=== PATIENT | male | born 1980 | race Caucasian/White ===

== ENCOUNTER 2017-08-23 04:52 | Emergency (ER) | payer MEDICAID ==
[~2017-08-23] VITALS: Ht 172.7 cm; Wt 83.6 kg
[2017-08-23] MEDS ORDERED: ONDANSETRON ODT 4 MG PO ONE (05:30)
[2017-08-23] MEDS ORDERED: ONDANSETRON ODT 4 MG ONE (05:30)
[2017-08-23 05:50] LABS: BASOPHILS # (AUTO) 0.05 x10^3/uL (0-0.1); BASOPHILS % (AUTO) 1 % (0-1); EOSINOPHILS # (AUTO) 0.01 x10^3/uL (0-0.4); EOSINOPHILS % (AUTO) 0 % (1-7); LYMPHOCYTES # (AUTO) 1.25 x10^3/uL (1-3.4); LYMPHOCYTES % (AUTO) 27 % (22-44); MD NO; MEAN CORPUSCULAR HGB CONC 34.4 g/dL (33.2-36.2); MEAN PLATELET VOLUME 6.5 fL (7.4-10.4); MONOCYTES # (AUTO) 0.64 x10^3/uL (0.2-0.8); MONOCYTES % (AUTO) 14 % (2-9); NEUTROPHILS % (AUTO) 58 % (42-75); PLATELET COUNT 335 x10^3/uL (130-400); RED BLOOD COUNT 4.52 x10^6/uL (4.38-5.82); RED CELL DISTRIBUTION WIDTH 16.7 % (9.4-14.8)
[2017-08-23] MEDS ORDERED: THIAMINE 100MG TABLET PO ONE (06:00)
[2017-08-23] MEDS ORDERED: FAMOTIDINE 20 MG/2 ML IVPush ONE (06:00)
[2017-08-23] MEDS ORDERED: LORazepam 2 MG/ML, 1ML IVPush ONE (06:00)
[2017-08-23] MEDS ORDERED: SODIUM CHLORIDE 0.9% 1,000ML IVBOLUS ONE (06:00)
[2017-08-23] MEDS ORDERED: METOCLOPRAMIDE 5 MG/ML, 2ML IVPush ONE (06:00)
[2017-08-23 06:03] LABS: ALANINE AMINOTRANSFERASE 134 U/L (12-78); ALBUMIN 3.7 g/dL (3.4-5.0); ANION GAP 20 mmol/L (5-15); CALCIUM 8.1 mg/dL (8.5-10.1); CHLORIDE 102 mmol/L (98-107); CREATININE 0.68 mg/dL (0.7-1.3)
[2017-08-23 06:05] LABS: ALKALINE PHOSPHATASE 215 U/L (45-117); TOTAL PROTEIN 8.2 g/dL (6.4-8.2)
[2017-08-23] MEDS ORDERED: THIAMINE 100MG TABLET ONE (06:07)
[2017-08-23] MEDS ORDERED: METOCLOPRAMIDE 5 MG/ML, 2ML ONE (06:08)
[2017-08-23] MEDS ORDERED: LORazepam 2 MG/ML, 1ML ONE (06:08)
[2017-08-23] MEDS ORDERED: POTASSIUM CHLORIDE 20 MEQ TAB.ER.PRT PO ONE (06:30)
[2017-08-23 07:26] VITALS: BP 127/81
== END 2017-08-23 08:22 ==
LOC: ED 07:30
DX: K80.20 Calculus of gallbladder without cholecystitis without obstruction (principal); K70.10 Alcoholic hepatitis without ascites; F41.9 Anxiety disorder, unspecified; I10 Essential (primary) hypertension
CPT/HCPCS: 36415; 76700; 80053; 83690; 85025; 93005; 96361; 96374; 96375; 99285; J2060; J2765; J7030; Q0162; S0028

== ENCOUNTER 2017-09-01 02:29 | Emergency (ER) | payer MEDICAID ==
[~2017-09-01] VITALS: Ht 172.7 cm; Wt 84.4 kg
[2017-09-01] MEDS ORDERED: MAGNESIUM SULFATE 1 GM, THIAMINE 100 MG, FOLIC ACID 1 MG, MVI ADULT 10 ML in SODIUM CHL... IV ONE (03:00)
[2017-09-01] MEDS ORDERED: LORazepam 2 MG/ML, 1ML IVPush ONE (03:00)
[2017-09-01] MEDS ORDERED: SODIUM CHLORIDE FLUSH 10ML SYR IVF ONE (03:00)
[2017-09-01 03:11] LABS: BASOPHILS # (AUTO) 0.07 x10^3/uL (0-0.1); BASOPHILS % (AUTO) 1 % (0-1); EOSINOPHILS # (AUTO) 0.01 x10^3/uL (0-0.4); EOSINOPHILS % (AUTO) 0 % (1-7); LYMPHOCYTES # (AUTO) 0.96 x10^3/uL (1-3.4); LYMPHOCYTES % (AUTO) 20 % (22-44); MD NO; MEAN PLATELET VOLUME 7.4 fL (7.4-10.4); MONOCYTES # (AUTO) 0.69 x10^3/uL (0.2-0.8); MONOCYTES % (AUTO) 14 % (2-9); NEUTROPHILS # (AUTO) 3.19 x10^3/uL (1.8-6.8); NEUTROPHILS % (AUTO) 65 % (42-75); PLATELET COUNT 200 x10^3/uL (130-400); RED BLOOD COUNT 4.17 x10^6/uL (4.38-5.82); RED CELL DISTRIBUTION WIDTH 16.2 % (9.4-14.8)
[2017-09-01 03:22] LABS: ALBUMIN 3.8 g/dL (3.4-5.0); ANION GAP 24 mmol/L (5-15); CALCIUM 7.8 mg/dL (8.5-10.1); CHLORIDE 95 mmol/L (98-107); CREATININE 0.71 mg/dL (0.7-1.3)
[2017-09-01] MEDS ORDERED: POTASSIUM CHLORIDE 20 MEQ TAB.ER.PRT PO ONE (04:00)
[2017-09-01] MEDS ORDERED: POTASSIUM CHLORIDE 20 MEQ TAB.ER.PRT ONE (04:49)
[2017-09-01] MEDS ORDERED: LORazepam 2 MG/ML, 1ML ONE ×2 (04:50→05:32)
[2017-09-01 05:56] VITALS: BP 122/86
[2017-09-04] MEDS ORDERED: THIA100T10 PO (12:23)
[2017-09-04] MEDS ORDERED: FOLI-17 PO (12:23)
== END 2017-09-01 05:57 | disposition home or self-care (01) ==
LOC: ED 03:12
DX: F10.220 Alcohol dependence with intoxication, uncomplicated (principal); E87.6 Hypokalemia; I10 Essential (primary) hypertension; F41.0 Panic disorder [episodic paroxysmal anxiety]; K75.9 Inflammatory liver disease, unspecified; Z79.899 Other long term (current) drug therapy
CPT/HCPCS: 36415; 80048; 80307; 82040; 85025; 93005; 96365; 96366; 96375; 99285; J2060; J3411; J3475; J7030

== ENCOUNTER 2018-02-03 08:33 | Emergency (ER) | payer MEDICAID ==
[~2018-02-03] VITALS: Ht 172.7 cm; Wt 87.5 kg
[~2018-02-03 08:33] MED LIST: FOLI-17 PO; THIA100T10 PO
[2018-02-03] MEDS ORDERED: LORazepam 2 MG/ML, 1ML ONE (09:27)
[2018-02-03] MEDS ORDERED: THIAMINE 100MG TABLET ONE (09:27)
[2018-02-03] MEDS ORDERED: ONDANSETRON ODT 4 MG ONE (09:27)
[2018-02-03] MEDS ORDERED: ONDANSETRON ODT 4 MG PO ONE (09:30)
[2018-02-03] MEDS ORDERED: CHLORDIAZEPOXIDE 25 MG CAPSULE PO ONE (09:30)
[2018-02-03] MEDS ORDERED: SODIUM CHLORIDE 0.9% 1,000ML IVBOLUS ONE (09:30)
[2018-02-03] MEDS ORDERED: SODIUM CHLORIDE FLUSH 10ML SYR IVF ONE (09:30)
[2018-02-03] MEDS ORDERED: LORazepam 2 MG/ML, 1ML IVPush ONE ×2 (09:30→13:00)
[2018-02-03] MEDS ORDERED: FOLIC ACID 1 MG in DEXTROSE 5% 50 ML IV ONE (09:30)
[2018-02-03] MEDS ORDERED: THIAMINE 100MG TABLET PO ONE (09:30)
[2018-02-03 09:57] LABS: BASOPHILS # (AUTO) 0.02 x10^3/uL (0-0.1); BASOPHILS % (AUTO) 0 % (0-1); EOSINOPHILS # (AUTO) 0.01 x10^3/uL (0-0.4); EOSINOPHILS % (AUTO) 0 % (1-7); LYMPHOCYTES # (AUTO) 1.09 x10^3/uL (1-3.4); LYMPHOCYTES % (AUTO) 14 % (22-44); MD NO; MEAN CORPUSCULAR HEMOGLOBIN 33.5 pg (27.5-34.5); MEAN CORPUSCULAR HGB CONC 35.1 g/dL (33.2-36.2); MEAN CORPUSCULAR VOLUME 95.3 fL (81-97); MEAN PLATELET VOLUME 7.7 fL (7.4-10.4); MONOCYTES # (AUTO) 0.55 x10^3/uL (0.2-0.8); MONOCYTES % (AUTO) 7 % (2-9); NEUTROPHILS # (AUTO) 5.94 x10^3/uL (1.8-6.8); NEUTROPHILS % (AUTO) 78 % (42-75); PLATELET COUNT 386 x10^3/uL (130-400); RED BLOOD COUNT 4.49 x10^6/uL (4.38-5.82); RED CELL DISTRIBUTION WIDTH 15.6 % (9.4-14.8)
[2018-02-03] MEDS ORDERED: CHLORDIAZEPOXIDE 25 MG CAPSULE ONE (09:58)
[2018-02-03 10:05] LABS: ALANINE AMINOTRANSFERASE 95 U/L (12-78); ALBUMIN 3.9 g/dL (3.4-5.0); ANION GAP 20 mmol/L (5-15); CALCIUM 8.9 mg/dL (8.5-10.1); CHLORIDE 104 mmol/L (98-107); CREATININE 1.03 mg/dL (0.7-1.3)
[2018-02-03 10:07] LABS: ALKALINE PHOSPHATASE 173 U/L (45-117); BILIRUBIN,TOTAL 0.6 mg/dL (0.2-1.0); TOTAL PROTEIN 8.3 g/dL (6.4-8.2)
[2018-02-03 14:18] VITALS: BP 145/119
== END 2018-02-03 14:21 | disposition home or self-care (01) ==
LOC: ED 13:30
DX: F10.239 Alcohol dependence with withdrawal, unspecified (principal); I10 Essential (primary) hypertension
CPT/HCPCS: 36415; 80053; 80307; 85025; 96365; 96366; 96375; 96376; 99285; J2060; J7030; Q0162

== ENCOUNTER 2018-07-11 21:04 | Inpatient (IN) | payer MEDICAID ==
[~2018-07-11] VITALS: Ht 172.7 cm; Wt 89.8 kg
[~2018-07-11 21:04] MED LIST changes: +LOSA25TA25 PO; +MAGN64TA7 PO; +METO25TA35 PO; +MULT-484 PO; +THIA100T67 PO; +VANC1VIA3 PO
[2018-07-11] MEDS ORDERED: MAGNESIUM SULFATE 1 GM, THIAMINE 100 MG, FOLIC ACID 1 MG, MVI ADULT 10 ML in SODIUM CHL... IV ONE (21:30)
[2018-07-11] MEDS ORDERED: SODIUM CHLORIDE FLUSH 10ML SYR IVF ONE (21:30)
[2018-07-11] MEDS ORDERED: SODIUM CHLORIDE 0.9% 1,000ML IVBOLUS ONE (21:30)
--- NOTE | 2018-07-11 21:31 | NUR ---
PT BIB [facility] C/O NAUSEA AND TACHYCARDIA R/T EOTH WITHDRAWAL. STATES HX OF WITHDRAWAL IN THE PAST. PRESENTS TO ED W/ MILD TREMORS AND MODERATE INCREASED ANXIETY. NO OTHER WITHDRAWAL SYMPTOMS NOTED AT THIS TIME. DENIES FURTHE C/O AT THIS TIME. ALL MONITORING APPLIED. IV ESTABLISHED. IV FLUIDS ADMIN PER JUL. THIS RN TO MEDICATED PER JUL. CALL TYLER MASTERSON.
[2018-07-11] MEDS ORDERED: LORazepam 2 MG/ML, 1ML ONE ×2 (21:35→22:51)
[2018-07-11] MEDS: LORazepam 2 MG/ML, 1ML IVPush PRN ×4 (21:37→23:13)
[2018-07-11 21:46] LABS: BASOPHILS # (AUTO) 0.03 x10^3/uL (0-0.1); BASOPHILS % (AUTO) 0 % (0-1); EOSINOPHILS # (AUTO) 0.01 x10^3/uL (0-0.4); EOSINOPHILS % (AUTO) 0 % (1-7); LYMPHOCYTES # (AUTO) 1.11 x10^3/uL (1-3.4); LYMPHOCYTES % (AUTO) 14 % (22-44); MD NO; MEAN CORPUSCULAR HGB CONC 34.9 g/dL (33.2-36.2); MEAN CORPUSCULAR VOLUME 94.4 fL (81-97); MEAN PLATELET VOLUME 8.4 fL (7.4-10.4); MONOCYTES # (AUTO) 0.54 x10^3/uL (0.2-0.8); MONOCYTES % (AUTO) 7 % (2-9); NEUTROPHILS # (AUTO) 6.51 x10^3/uL (1.8-6.8); NEUTROPHILS % (AUTO) 79 % (42-75); PLATELET COUNT 206 x10^3/uL (130-400); RED BLOOD COUNT 4.28 x10^6/uL (4.38-5.82); RED CELL DISTRIBUTION WIDTH 14.4 % (9.4-14.8)
[2018-07-11 22:19] LABS: ALANINE AMINOTRANSFERASE 85 U/L (12-78); ALBUMIN 3.9 g/dL (3.4-5.0); ANION GAP 21 mmol/L (5-15); CHLORIDE 104 mmol/L (98-107)
[2018-07-11 22:22] LABS: ALKALINE PHOSPHATASE 136 U/L (45-117); BILIRUBIN,TOTAL 0.9 mg/dL (0.2-1.0); TOTAL PROTEIN 7.7 g/dL (6.4-8.2)
[2018-07-11] MEDS: DIAZEPAM 5 MG/ML, 2ML IVPush PRN ×2 (22:27→23:55)
--- NOTE | 2018-07-11 22:27 | NUR ---
PT HR STILL 120-140'S. GIVEN 2ND DOSE OF ATIVAN AND FIRST DOSE OF VALIUM. OTHER IV DRIP INITIATED PER JUL.
[2018-07-11] MEDS ORDERED: LABETALOL 5 MG/ML SYRINGE IV PRN (23:00)
[2018-07-11] MEDS ORDERED: ACETAMINOPHEN 325 MG TABLET PO PRN (23:00)
[2018-07-11] MEDS ORDERED: LORazepam 1MG TABLET PO PRN ×2 (23:00)
[2018-07-11] MEDS ORDERED: ASA/APAP/ CAFFEINE TABLET PO PRN (23:00)
[2018-07-11] MEDS ORDERED: KETOROLAC 30 MG/1 ML IV PRN (23:00)
[2018-07-11] MEDS: POTASSIUM CHLORIDE 10 MEQ, MVI ADULT 10 ML, FOLIC ACID 1 MG, MAGNESIUM SULFATE 1 GM in ... IV SCH (23:00)
[2018-07-11] MEDS ORDERED: LORazepam 0.5MG TABLET PO PRN (23:00)
--- NOTE | 2018-07-11 23:39 | NUR ---
ADAMIUM TUBED FROM RX AFTER PT TRANSFER UPSTAIRS. THIS RN GAVE VALIUM TO BRITNEY MCGINNIS ON 4TH FLOOR.
[2018-07-11] MEDS ORDERED: HEPARIN 5,000 UNITS/ML, 1ML ONE (23:51)
[2018-07-11] MEDS: HEPARIN 5,000 UNITS/ML, 1ML SQ SCH (23:58)
[2018-07-11] MEDS: LORazepam 2 MG/ML, 1ML IV PRN (23:58)
[2018-07-12] MEDS: DIPHENHYDRAMINE 50 MG CAPSULE PO PRN ×2 (00:04→20:10)
[2018-07-12] MEDS ORDERED: LACTATED RINGERS 1,000 ML IV SCH (01:00)
[2018-07-12 01:22] VITALS: BP 111/75
[2018-07-12] MEDS: LORazepam 2 MG/ML, 1ML IV PRN (02:08)
[2018-07-12] MEDS ORDERED: METOPROLOL 1 MG/ML, 5ML ONE (03:46)
[2018-07-12 03:50] VITALS: BP 119/76
[2018-07-12] MEDS ORDERED: METOPROLOL 1 MG/ML, 5ML IVPush ONE (04:00)
[2018-07-12] MEDS: HEPARIN 5,000 UNITS/ML, 1ML SQ SCH ×3 (06:48→22:58)
[2018-07-12 08:08] VITALS: BP 112/71
[2018-07-12] MEDS: MAGNESIUM CHLORIDE 70MG TAB DR PO SCH ×2 (08:55→20:09)
[2018-07-12] MEDS: MULTIVITAMINS/MINERALS TABLET PO SCH (08:56)
[2018-07-12] MEDS: METOPROLOL TARTRATE 25 MG TABLET PO SCH ×2 (08:56→20:09)
[2018-07-12] MEDS: LOSARTAN 25MG TABLET PO SCH (08:56)
[2018-07-12] MEDS ORDERED: MAGNESIUM CHLORIDE 70MG TAB DR PO SCH (09:00)
[2018-07-12] MEDS ORDERED: MULTIVITAMINS/MINERALS TABLET PO SCH (09:00)
[2018-07-12] MEDS: BACLOFEN 10 MG TABLET PO SCH ×3 (10:29→20:09)
[2018-07-12] MEDS: D5%-0.45% NACL 1,000 ML IV SCH ×2 (10:29→23:16)
[2018-07-12] MEDS ORDERED: MAGNESIUM SULFATE PMX 2GM/50ML 50 ML IV ONE (10:30)
[2018-07-12 13:05] VITALS: BP 143/82
[2018-07-12] MEDS: LORazepam 2 MG/ML, 1ML IVPush PRN ×2 (14:41→22:57)
[2018-07-12 17:12] LABS: CLOSTRIDIUM DIFFICILE ANTIGEN POSITIVE; CLOSTRIDIUM DIFFICILE TOXIN NEGATIVE (Negative)
[2018-07-12] MEDS: VANCOMYCIN 50 MG/ML ORAL SUSP PO SCH ×2 (17:46→22:57)
[2018-07-12 18:30] VITALS: BP 136/77
[2018-07-13] VITALS (8 sets, daily range): BP systolic 137–164; BP diastolic 93–116
[2018-07-13 03:51] LABS: ANION GAP 8 mmol/L (5-15); CALCIUM 7.8 mg/dL (8.5-10.1); CHLORIDE 103 mmol/L (98-107)
[2018-07-13 03:53] LABS: CREATININE 0.71 mg/dL (0.7-1.3)
[2018-07-13 04:04] LABS: BASOPHILS # (AUTO) 0.01 x10^3/uL (0-0.1); BASOPHILS % (AUTO) 0 % (0-1); EOSINOPHILS # (AUTO) 0.08 x10^3/uL (0-0.4); EOSINOPHILS % (AUTO) 2 % (1-7); LYMPHOCYTES % (AUTO) 31 % (22-44); MD SCAN; MEAN CORPUSCULAR HEMOGLOBIN 33.2 pg (27.5-34.5); MEAN CORPUSCULAR HGB CONC 34.9 g/dL (33.2-36.2); MEAN PLATELET VOLUME 8.3 fL (7.4-10.4); MONOCYTES # (AUTO) 0.25 x10^3/uL (0.2-0.8); MONOCYTES % (AUTO) 7 % (2-9); NEUTROPHILS # (AUTO) 2.11 x10^3/uL (1.8-6.8); NEUTROPHILS % (AUTO) 59 % (42-75); PLATELET COUNT 96 x10^3/uL (130-400); RED BLOOD COUNT 3.48 x10^6/uL (4.38-5.82)
[2018-07-13] MEDS: D5%-0.45% NACL 1,000 ML IV SCH ×2 (06:28→20:30)
[2018-07-13] MEDS: VANCOMYCIN 50 MG/ML ORAL SUSP PO SCH ×4 (06:28→22:59)
[2018-07-13] MEDS ORDERED: POTASSIUM CHLORIDE 20 MEQ TAB.ER.PRT PO ONE (07:30)
[2018-07-13] MEDS ORDERED: THIAMINE 100 MG in DEXTROSE 5% 50 ML IVPB SCH (09:00)
[2018-07-13] MEDS: MULTIVITAMINS/MINERALS TABLET PO SCH (09:06)
[2018-07-13] MEDS: LOSARTAN 25MG TABLET PO SCH (09:06)
[2018-07-13] MEDS: BACLOFEN 10 MG TABLET PO SCH ×3 (09:07→20:03)
[2018-07-13] MEDS: METOPROLOL TARTRATE 25 MG TABLET PO SCH ×2 (09:07→20:03)
[2018-07-13] MEDS: HEPARIN 5,000 UNITS/ML, 1ML SQ SCH ×2 (09:07→17:24)
[2018-07-13] MEDS: MAGNESIUM CHLORIDE 70MG TAB DR PO SCH ×2 (09:07→20:03)
[2018-07-13] MEDS: ONDANSETRON 2MG/ML, 2ML IV PRN ×2 (09:25→16:10)
[2018-07-13] MEDS: LORazepam 2 MG/ML, 1ML IVPush PRN ×3 (09:34→22:59)
[2018-07-13] MEDS ORDERED: POTASSIUM PHOSPHATE 44 MEQ in SODIUM CHLORIDE 0.9% 500 ML IV ONE (11:30)
[2018-07-13] MEDS: DIPHENHYDRAMINE 50 MG CAPSULE PO PRN (20:03)
[2018-07-13] MEDS: POTASSIUM CHLORIDE 10 MEQ, MVI ADULT 10 ML, FOLIC ACID 1 MG, MAGNESIUM SULFATE 1 GM in ... IV SCH (22:59)
[2018-07-14] MEDS: HEPARIN 5,000 UNITS/ML, 1ML SQ SCH ×2 (01:00→09:00)
[2018-07-14 02:49] VITALS: BP 152/85
[2018-07-14] MEDS: D5%-0.45% NACL 1,000 ML IV SCH ×3 (04:30→20:06)
[2018-07-14] MEDS: LORazepam 2 MG/ML, 1ML IVPush PRN (05:17)
[2018-07-14] MEDS: VANCOMYCIN 50 MG/ML ORAL SUSP PO SCH ×4 (05:17→23:46)
[2018-07-14 05:38] LABS: ALANINE AMINOTRANSFERASE 85 U/L (12-78); ALBUMIN 3.3 g/dL (3.4-5.0); ANION GAP 6 mmol/L (5-15); CHLORIDE 109 mmol/L (98-107); CREATININE 0.59 mg/dL (0.7-1.3)
[2018-07-14 05:40] LABS: ALKALINE PHOSPHATASE 124 U/L (45-117); BILIRUBIN,TOTAL 1.3 mg/dL (0.2-1.0); TOTAL PROTEIN 6.8 g/dL (6.4-8.2)
[2018-07-14 05:55] LABS: MEAN CORPUSCULAR HEMOGLOBIN 33.2 pg (27.5-34.5); MEAN CORPUSCULAR HGB CONC 34.8 g/dL (33.2-36.2); MEAN CORPUSCULAR VOLUME 95.5 fL (81-97); RED BLOOD COUNT 3.52 x10^6/uL (4.38-5.82)
[2018-07-14 07:05] LABS: BASOPHILS # (AUTO) 0.01 x10^3/uL (0-0.1); BASOPHILS % (AUTO) 0 % (0-1); EOSINOPHILS # (AUTO) 0.14 x10^3/uL (0-0.4); EOSINOPHILS % (AUTO) 4 % (1-7); LYMPHOCYTES # (AUTO) 1.13 x10^3/uL (1-3.4); LYMPHOCYTES % (AUTO) 30 % (22-44); MD SCAN; MEAN PLATELET VOLUME 8.8 fL (7.4-10.4); MONOCYTES # (AUTO) 0.25 x10^3/uL (0.2-0.8); MONOCYTES % (AUTO) 7 % (2-9); NEUTROPHILS # (AUTO) 2.28 x10^3/uL (1.8-6.8); NEUTROPHILS % (AUTO) 60 % (42-75); PLATELET COUNT 77 x10^3/uL (130-400)
[2018-07-14 08:31] VITALS: BP 137/92
[2018-07-14] MEDS: LOSARTAN 25MG TABLET PO SCH (10:21)
[2018-07-14] MEDS: BACLOFEN 10 MG TABLET PO SCH ×3 (10:21→20:05)
[2018-07-14] MEDS: METOPROLOL TARTRATE 25 MG TABLET PO SCH ×2 (10:22→20:05)
[2018-07-14] MEDS: MULTIVITAMINS/MINERALS TABLET PO SCH (10:22)
[2018-07-14] MEDS: MAGNESIUM CHLORIDE 70MG TAB DR PO SCH ×2 (10:22→20:05)
[2018-07-14] MEDS: SUCRALFATE 1 GM/10 ML UDC PO SCH ×3 (10:23→20:05)
[2018-07-14] MEDS: THIAMINE 100 MG in SODIUM CHLORIDE 0.9% 50 ML IVPB SCH (10:40)
[2018-07-14 13:59] LABS: HIT RESULT POSITIVE (NEGATIVE)
[2018-07-14 14:27] VITALS: BP 154/101
[2018-07-14 19:21] VITALS: BP 148/89
[2018-07-14] MEDS: POTASSIUM CHLORIDE 10 MEQ, MVI ADULT 10 ML, FOLIC ACID 1 MG, MAGNESIUM SULFATE 1 GM in ... IV SCH (22:18)
[2018-07-15 01:20] VITALS: BP 142/86
[2018-07-15] MEDS: VANCOMYCIN 50 MG/ML ORAL SUSP PO SCH ×3 (05:19→17:07)
[2018-07-15 05:39] LABS: MEAN CORPUSCULAR HEMOGLOBIN 33.2 pg (27.5-34.5); MEAN CORPUSCULAR HGB CONC 34.5 g/dL (33.2-36.2); MEAN CORPUSCULAR VOLUME 96.1 fL (81-97); MEAN PLATELET VOLUME 8.7 fL (7.4-10.4); PLATELET COUNT 60 x10^3/uL (130-400); RED BLOOD COUNT 3.51 x10^6/uL (4.38-5.82)
[2018-07-15 05:56] LABS: CHLORIDE 109 mmol/L (98-107)
[2018-07-15 06:08] LABS: ALANINE AMINOTRANSFERASE 110 U/L (12-78); ALBUMIN 3.2 g/dL (3.4-5.0); ALKALINE PHOSPHATASE 127 U/L (45-117); ANION GAP 6 mmol/L (5-15); BILIRUBIN,TOTAL 1.4 mg/dL (0.2-1.0); CALCIUM 8.2 mg/dL (8.5-10.1); CREATININE 0.63 mg/dL (0.7-1.3); TOTAL PROTEIN 6.9 g/dL (6.4-8.2)
[2018-07-15 06:09] LABS: BASOPHILS # (AUTO) 0.02 x10^3/uL (0-0.1); BASOPHILS % (AUTO) 0 % (0-1); EOSINOPHILS # (AUTO) 0.22 x10^3/uL (0-0.4); EOSINOPHILS % (AUTO) 5 % (1-7); LYMPHOCYTES # (AUTO) 1.05 x10^3/uL (1-3.4); LYMPHOCYTES % (AUTO) 25 % (22-44); MD SCAN; MONOCYTES # (AUTO) 0.29 x10^3/uL (0.2-0.8); MONOCYTES % (AUTO) 7 % (2-9); NEUTROPHILS # (AUTO) 2.66 x10^3/uL (1.8-6.8); NEUTROPHILS % (AUTO) 63 % (42-75)
[2018-07-15 07:25] VITALS: BP 149/110
[2018-07-15] MEDS: SUCRALFATE 1 GM/10 ML UDC PO SCH ×3 (07:35→17:00)
[2018-07-15] MEDS: MAGNESIUM CHLORIDE 70MG TAB DR PO SCH (09:27)
[2018-07-15] MEDS: MULTIVITAMINS/MINERALS TABLET PO SCH (09:27)
[2018-07-15] MEDS: BACLOFEN 10 MG TABLET PO SCH ×2 (09:27→16:59)
[2018-07-15] MEDS: LOSARTAN 25MG TABLET PO SCH (09:27)
[2018-07-15] MEDS: METOPROLOL TARTRATE 25 MG TABLET PO SCH (09:27)
[2018-07-15] MEDS ORDERED: FUROSEMIDE 20 MG/2 ML ONE (10:27)
[2018-07-15] MEDS ORDERED: LISINOPRIL 10 MG TABLET ONE (10:28)
[2018-07-15] MEDS ORDERED: LISINOPRIL 10 MG TABLET PO SCH (10:30)
[2018-07-15] MEDS ORDERED: FUROSEMIDE 20 MG/2 ML IV ONE (10:30)
[2018-07-15] MEDS: THIAMINE 100 MG in SODIUM CHLORIDE 0.9% 50 ML IVPB SCH (10:37)
[2018-07-15] MEDS ORDERED: POTASSIUM CHLORIDE 20 MEQ TAB.ER.PRT PO ONE (11:00)
[2018-07-15 14:03] VITALS: BP 147/103
[2018-07-15] MEDS ORDERED: VANC1VIA3 PO (14:37)
[2018-07-15] MEDS ORDERED: LISI-167 PO (14:37)
[2018-07-15] MEDS ORDERED: SUCR1ORA5 PO (14:37)
== END 2018-07-15 18:07 | disposition home or self-care (01) | DRG 372 ==
LOC: ED 21:49 → EDIP 23:00 → 4WST 23:52
PROVIDERS: ADMIT Internal Medicine; ATTEND Internal Medicine
DX: A04.72 Enterocolitis due to Clostridium difficile, not specified as recurrent (principal); F10.239 Alcohol dependence with withdrawal, unspecified; E87.2 Acidosis; E86.0 Dehydration; F17.210 Nicotine dependence, cigarettes, uncomplicated; I10 Essential (primary) hypertension; K70.10 Alcoholic hepatitis without ascites; Z91.14 Patient's other noncompliance with medication regimen
CPT/HCPCS: 36415; 99285; J3370; J7042; 76700; 80048; 80053; 80307; 82542; 83690; 83735; 84100; 85025; 86022; 87324; 87493; 90656; 93005; 96361; 96374; 96375; 96376; G0378; J1644; J2405; J3360; J3411; J3475; J3480; J1940; J2060; J7030; J7040